=== PATIENT | male | born 1945 | race Caucasian/White ===

== ENCOUNTER 2018-11-12 07:42 | Observation (INO) | payer OTHER, MEDICARE ==
[2018-11-12] VITALS (22 sets, daily range): BP systolic 118–140; BP diastolic 48–74
[~2018-11-12] VITALS: Ht 167.6 cm; Wt 95.3 kg
[~2018-11-12 07:42] MED LIST: ASPIRIN325 PO; ASPIRIN81 M2 PO; CIPROFLOXACIN500 M1 PO; CRESTOR10 MG PO; DEXILANT60 MG PO; EFFIENT10 MG PO; FISH OIL 1,0001 EAC5 PO; FLAGYL500 MG PO; FLOMAX0.4 MG PO; HYDROCODON-ACE1 EAC7 PO; IBUPROFEN 200200 M1 PO; LASIX 20 MG TAB20 MG PO; LIVALO2 MG PO; LIVALO4 MG PO; NITROGLYCERIN0.4 MG SUBLING; NITROGLYCERIN4.1 GM; SYNTHROID50 MCG PO; TOPROL XL25 MG PO; VITAMIN D1000 UNI1 PO; ZETIA10 MG PO
[2018-11-12 08:27] LABS: HEMATOCRIT 46.3 % (42.0-52.0); MCH 30.5 pg (26.0-34.0); MCHC 34.4 g/dL (28.0-37.0); MCV 88.6 fL (80.0-100.0); MPV 8.6 fl. (7.2-11.1); RBC 5.23 mil/uL (4.50-6.00); RDW-CV 12.8 % (10.5-14.5); WBC 6.3 thou/uL (4.0-11.0)
[2018-11-12 08:32] LABS: APTT 27.4 Seconds (25.0-31.3)
[2018-11-12 08:41] LABS: ALBUMIN 3.6 g/dL (3.4-5.0); ALKALINE PHOSPHATASE 102 U/L (46-116); ANION GAP 10 mmol/L (7-16); BUN 21 mg/dL (7-18); CALCIUM 9.1 mg/dL (8.5-10.1); CHLORIDE 105 mmol/L (98-107); CHOLESTEROL 67 mg/dL (<200); CO2 26 mmol/L (21-32); CREATININE 1.1 mg/dL (0.6-1.3); GLUCOSE 111 mg/dL (70-99); HDL CHOLESTEROL 47 mg/dL (>40); LDL CHOLESTEROL -3 mg/dL (<100); SGOT 21 U/L (15-37); SGPT 33 U/L (30-65); SODIUM 141 mmol/L (136-145); TC:HDL 1.4 Ratio (Not establshd); TOTAL BILIRUBIN 0.4 mg/dL (<0.1-1.0); TOTAL PROTEIN 7.5 g/dL (6.4-8.2); TRIGLYCERIDE 119 mg/dL (<150); VLDL 24 mg/dL (<40)
[2018-11-12 08:42] LABS: SERUM ASSESSMENT Slight Lipemia
[2018-11-12] MEDS ORDERED: EFFIENT10 MG PO (08:46)
[2018-11-12] MEDS ORDERED: FLOMAX0.4 MG PO (08:47)
[2018-11-12] MEDS ORDERED: PRAULENT SUBQ (08:51)
--- NOTE | 2018-11-12 14:20 | EKG ---
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1945 Requested By: José Mota Order Number: [id number] Reading MD: José Mota Measurements Intervals [place] Rate: 56 P: 49 SD: 165 QRS: -28 QRSD: 99 T: 42 QT: 414 QTc: 400 Interpretive Statements Sinus rhythm RSR' in V1 or V2, probably normal variant Inferior infarct, old Compared to ECG 07/26/2017 03:24:15 RSR' in V1 or V2 now present Myocardial infarct finding still present Electronically Signed On 11-12-2018 14:20:13 CDT by José Mota [email or web address] <ELECTRONICALLY SIGNED> By: José Mota MD, [facility] 11/12/18 1420 José Mota MD, [facility] /EPI
--- NOTE | 2018-11-12 14:21 | EKG ---
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1945 Requested By: José Mota Order Number: [id number] [place] MD: José Mota Measurements Intervals [place] Rate: 59 P: 60 [place]: 161 QRS: -28 QRSD: 81 T: 20 QT: 433 QTc: 429 Interpretive Statements Sinus rhythm Borderline left axis deviation possible inferior scar RSR' in V1 or V2, probably normal variant Abnrm T, consider ischemia, anterolateral lds Compared to ECG 07/26/2017 03:24:15 RSR' in V1 or V2 now present Possible ischemia now present Myocardial infarct finding persists Electronically Signed On 11-12-2018 14:21:34 CDT by José Mota [email or web address] <ELECTRONICALLY SIGNED> By: José Mota MD, [facility] 11/12/18 1421 1114 1114 José Mota MD, [facility] /EPI
--- NOTE | 2018-11-12 14:33 | CARD ---
[address] [address] CARDIAC CATH REPORT Name: VALENTIN SANDERSON Room: [address] Dilma Moody#: [id number] Admission: 11/12/18 Attend Phys: José Mota MD, Discharge: Date of : 45 Report #: [id number] THIS REPORT FOR: //name// APPROVED REPORT Study performed: 11/12/2018 08:53:51 Patient Details The patient is a 73 year-old male Event Personnel José Mota Work Manager, Ladi Bravo RN Flat Breakdown Processor, Kevin Vasquez (R) Joo Almonte Brad INTERNATIONAL BANKER Monitor Procedures Performed Left Heart Cath w/or w/o Coronaries [id number] [facility] w/wo Plasty Single CIRC 475544 PTCA Single Vessel LAD [id number] PC[facility] Indication Unstable angina Risk Factors Hypercholesterolemia Previous Procedures/Diagnoses Previous PCI Admission/Lab Medications/Medications given during procedure Aspirin, Platelet Aff. Inhib., Angiomax bolus and infusion Procedure Narrative The patient was brought electively to the Cardiac Catheterization Laboratory and was prepped and draped in a sterile manner. The right femoral was infiltrated with 2% Lidocaine subcutaneous anesthesia. A Princeton 6 FR sheath was inserted into the RFA. Coronary angiography was performed using coronary diagnostic catheters. The right coronary system was accessed and visualized with a JL4 catheter. The left coronary system was accessed and visualized with a JR4 catheter. The left ventricle was accessed and visualized with a Angled PIG catheter. Left ventricular/Aortic Valve gradient assessed via catheter pullback. Left ventriculogram was performed in DUPONT projection. Pre-demployment femoral angiogram was performed . Closure device was deployed with a Fr Angioseal STS 6Fr[place] [address] CARDIAC CATH REPORT Name: VALENTIN SANDERSON Room: [address] M.R.#: [id number] Admission: 11/12/18 Attend Phys: José Mota MD, Discharge: Date of : 45 Report #: [id number]. Intraoperative Conscious Sedation Fentanyl 75.0 mcg Dose: 154 mGy Contrast Type and Amount: Visipaque 300 ml Coronary Angiography The patient's coronary anatomy is right dominant. Diagnostic Cath Left Main 0% narrowing LAD Widely patent proximal LAD stent with 30% mid vessel narrowing Circumflex 90% ostial proximal circumflex narrowing with 40% mid vessel narrowing Right Coronary Dominant vessel with widely patent proximal and mid vessel stents with 0% narrowing Left Ventriculography The left ventricle is normal in size with normal contractility. The left ventricular ejection fraction is estimated to be 60%. Left ventricular wall motion abnormalities are not present. There is no mitral insufficiency. Hemodynamics The aortic pressure is 102/55 mmHg with a mean of 72 mmHg. The left ventricular pressure is 107/7 mmHg with a mean of mmHg. The left ventricular end diastolic pressure is 21 mmHg. There was no gradient across the aortic valve upon pullback. PCI Technique Lesion Anticoagulation was achieved with Angiomax. Patient was preloaded with Angiomax IV 14 mg per kg. Percutaneous coronary intervention was performed on the proximal circumflex artery segment. The lesion stenosis prior to intervention was 90% with LACEY 3 flow. A 6F XB LAD 3.5 Guide Catheter was used to engage the ostium. A IG: BMW 190cm Interventional Guidewire was used to cross the lesion. BALLOON DILATION A Balloon catheter Trek RX 2.5 X 12 was inserted and inflated up to 16.00atm for 18seconds. STENT DEPLOYMENT A stent Xience Sharron [id number] was inserted [place] [address] CARDIAC CATH REPORT Name: VALENTIN SANDERSON JAY JAY Room: [address]#: [id number] Admission: 11/12/18 Attend Phys: José Mota MD, Discharge: Date of : 45 Report #: [id number] 18.00atm for 10seconds. POST STENT DEPLOYMENT BALLOON DILATION A Balloon catheter NC Trek RX 2.75 X 12 was inserted and inflated up to 18.00atm for 10seconds. Final angiography reveals 10 % stenosis with LACEY 3 flow. PCI Technique Lesion 2 Percutaneous Coronary Intervention was performed on the proximal left anterior descending artery segment. The lesion stenosis prior to intervention was 60% with LACEY 3 flow. A 6F XB LAD 3.5 Guide Catheter was used to engage the ostium. A IG: ProwaterFlex 180CM Interventional Guidewire was used to cross the lesion. Balloon Dilation A Balloon catheter NC Trek RX 3.25X8 was inserted and inflated up to 18.00atm for 10seconds. Final angiography reveals 0 % stenosis with LACEY flow. Conclusion #1 significant coronary artery disease characterized by the following: A 90% ostial proximal circumflex narrowing B widely patent proximal LAD stent with 30% mid vessel narrowing C dominant right coronary artery with widely patent proximal and mid vessel stents #2 normal left ventricular systolic function, estimate ejection fraction being 60% #3 moderate elevation of left ventricular end-diastolic pressure at rest #4 successful percutaneous coronary intervention with deployment of drug-eluting stent at site of 90% ostial proximal circumflex narrowing with 10% residual narrowing and LACEY-3 flow the distal vessel #5 successful percutaneous transient coronary angioplasty of the proximal LAD after plaque shift associated with circumflex stent deployment with 0% residual narrowing following [place] [address] CARDIAC CATH REPORT Name: VALENTIN SANDERSON Room: [address] Dilma M.R.#: [id number] Admission: 11/12/18 Attend Phys: José Mota MD, Discharge: Date of : 45 Report #: [id number] LACEY-3 flow the distal vessel Recommendations Cardiac Risk Reduction Program Aggressive Medical Therapy Medications Administered Prasugrel Diagnostic Cath Approved by: José Mota MD Date/Time: 11/12/2018 14:31:01 <ELECTRONICALLY SIGNED> By: José Mota MD, [facility] 11/12/18 1432 143 143[facility] M[facility] MD, [facility] /INF
[2018-11-13] VITALS: BP 115/56
[2018-11-13 04:00] VITALS: BP 119/70
[2018-11-13 05:11] LABS: HEMATOCRIT 43.9 % (42.0-52.0); HEMOGLOBIN 15.1 gm/dL (14.0-18.0); MCH 30.4 pg (26.0-34.0); MCHC 34.5 g/dL (28.0-37.0); MCV 88.1 fL (80.0-100.0); MPV 8.7 fl. (7.2-11.1); RBC 4.99 mil/uL (4.50-6.00); WBC 7.2 thou/uL (4.0-11.0)
[2018-11-13 05:22] LABS: ALBUMIN 3.4 g/dL (3.4-5.0); CALCIUM 8.6 mg/dL (8.5-10.1); CREATININE 1.1 mg/dL (0.6-1.3); POTASSIUM 3.7 mmol/L (3.5-5.1); TOTAL BILIRUBIN 0.7 mg/dL (<0.1-1.0); TOTAL PROTEIN 6.9 g/dL (6.4-8.2); TROPONIN-I LEVEL 0.12 ng/mL (<0.06)
[2018-11-13 08:00] VITALS: BP 135/78
[2018-11-13 09:17] VITALS: BP 120/62
[2018-11-13 10:44] VITALS: BP 120/62
--- NOTE | 2018-11-13 18:23 | EKG ---
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[facility] : 1945 Requested By: José Mota Order Number: [id number] Reading MD: Grant Pool Measurements Intervals [place] Rate: 61 P: 53 [place]: 167 QRS: -22 QRSD: 75 T: 50 QT: 422 QTc: 425 Interpretive Statements Sinus rhythm Probable left atrial enlargement Borderline left axis deviation Nonspecific T abnrm, anterolateral leads Compared to ECG 11/12/2018 11:14:53 Possible ischemia no longer present Electronically Signed On 11-13-2018 18:23:28 CDT by Grant Pool [email or web address] <ELECTRONICALLY SIGNED> By: Grant Pool MD, FACC 11/13/18 1823 0409 [id number] Grant Pool MD, [facility] /EPI
--- NOTE | 2018-11-14 11:20 | H ---
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 When last seen in the office in July, he noted brief episodes of chest discomfort. Since then, there has been an increase in frequency and severity of central chest pain, typical of his prior angina brought on by modest exertion. The episodes have become more frequent and more severe. He has underlying hyperlipidemia. He is compliant with cardiac regimen including Effient 10 mg daily, rosuvastatin 20 mg daily, L-thyroxine 50 mcg daily, furosemide 40 mg daily, Repatha injections every 2 weeks, aspirin 325 mg daily. Additional medicines include Uroxatral and Dexilant. PAST MEDICAL HISTORY: Remarkable for hyperlipidemia, hypothyroidism. FAMILY HISTORY: Remarkable for premature cardiac disease. SOCIAL HISTORY: He is a prior smoker. He is . REVIEW OF SYSTEMS: Generally notes mild arthritic complaints and there is mild weight excess. Remainder is unremarkable. PHYSICAL EXAMINATION: GENERAL: Demonstrates a modestly overweight elderly male in no acute distress. VITAL SIGNS: Blood pressure 130/70, pulse rate 74, respirations 18 per minute. NECK: Jugular venous pressure is normal with carotids being 1-2+. CHEST: Clear. CARDIOVASCULAR: Reveals normal first and second heart sounds without rubs or murmurs. There is a question of an S4 gallop. ABDOMEN: Mildly obese. EXTREMITIES: Without edema with intact femoral, pedal and radial pulses. IMPRESSION: 1. Unstable angina. 2. Coronary artery disease, status post prior percutaneous intervention to the LAD, right coronary artery [place] [address] HISTORY AND PHYSICAL Name: VALENTIN SANDERSON JAY JAY Room: [address] Roel.#: [id number] Admission: 11/12/18 Attend Phys: José Mota MD, Discharge: 11/13/18 Date of : 45 Report #: [id number] 3. Hypercholesterolemia. 4. Modest weight excess. RECOMMENDATIONS: Given the aforementioned clinical scenario with increasing angina and known coronary artery disease with the risk factor profile as outlined above, I would recommend proceeding with cardiac catheterization to define current coronary anatomy prospects for subsequent therapeutic modification. This has been discussed with the patient and family. <ELECTRONICALLY SIGNED> By: José Mota MD, [facility] 11/14/18 1120 1050 1203Joyuli Mota MD, FACC /nt
--- NOTE | 2018-11-14 11:21 | D ---
[address] [address] DISCHARGE SUMMARY Name: VALENTIN SANDERSON Room: [address] Dilma MBest#: [id number] Admission: 11/12/18 Attend Phys: José Mota MD, Discharge: 11/13/18 Date of : 45 Report #: [id number] THIS REPORT FOR: //name// CC: Dr. Modesto Mota [facility] DATE OF SERVICE: 11/13/2018 FINAL DISCHARGE DIAGNOSES: 1. Unstable angina. 2. Coronary artery disease. 3. Status post multiple percutaneous coronary interventions, most recently to the proximal circumflex on 11/12/2018. 4. Hyperlipidemia. PROCEDURES: On 11/12/2018 -- left heart catheterization, left ventriculography, selective coronary arteriography, and percutaneous coronary intervention with stenting of the proximal circumflex and angioplasty of the proximal LAD. 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 He has underlying hyperlipidemia and weight excess. Recently, he has noted recrudescence of exertional chest discomfort typical of his angina following an unstable pattern. In this context, I recommended proceeding with cardiac catheterization, which was undertaken on 11/12/2018. That study revealed 90% ostial proximal circumflex stenosis with mild mid LAD narrowing and widely patent proximal and mid right coronary stents. Given this data, I performed percutaneous coronary intervention of the circumflex, deploying one 2.75 x 12 mm Xience Sharron drug-eluting stent in the proximal circumflex with 10% residual narrowing. With stent deployment in the proximal circumflex there was mild obstruction of the subtle narrowing of the proximal LAD and I dilated that with a 3.25 x 8 NC Trek inflated to 16-18 atmospheres with 10% residual circumflex with 0% residual LAD narrowing. The patient did well post-procedurally and ambulated in the hallways without difficulty with good hemostasis at the right femoral site of catheterization. Laboratory on 11/13/2018 revealed sodium 140, potassium 3.7, BUN 15, creatinine 1.1. Hemoglobin 15.1, white blood cell count 7200 with 179,000 platelets. Troponin susie inconsequentially to 0.12. Cholesterol 107, triglycerides 119, HDL 47, calculated LDL -3. Thus, the patient was discharged to home on 11/13/2018 on the following medications: Aspirin 325 mg daily, Dexilant 60 mg daily, L-thyroxine 50 [place] [address] DISCHARGE SUMMARY Name: VALENTIN SANDERSON Room: [address]#: [id number] Admission: 11/12/18 Attend Phys: José Mota MD, Discharge: 11/13/18 Date of : 45 Report #: [id number] daily, prasugrel or Effient 10 mg daily with 30 mg nick-procedural dose, rosuvastatin 20 mg at bedtime, tamsulosin 0.4 mg daily, Praluent 150 mg subcutaneously every weeks. I will plan to see him in approximately 2 months in the office with an echocardiogram at that time; that visit having been scheduled. Thus, the patient is discharged to home in stable condition on the above described medications with followup as iterated above. <ELECTRONICALLY SIGNED> By: José Mota MD, [facility] 11/14/18 1121 0910 [id number] Mota MD, FAC /nt
== END 2018-11-13 11:00 | disposition home or self-care (01) ==
LOC: M.CL 07:42 → M.2W 10:41 → M.TBA-CV 10:41 → M.CL 13:00 → M.2W 15:47
PROVIDERS: ADMIT Internal Medicine
DX: I25.110 Atherosclerotic heart disease of native coronary artery with unstable angina pectoris (principal); E78.00 Pure hypercholesterolemia, unspecified; R63.5 Abnormal weight gain; E78.5 Hyperlipidemia, unspecified; E03.9 Hypothyroidism, unspecified; Z98.61 Coronary angioplasty status; Z79.82 Long term (current) use of aspirin; Z87.891 Personal history of nicotine dependence

== ENCOUNTER → 2019-05-27 | Outpatient (CLI) | payer OTHER, MEDICARE ==
[~2019-05-27] MED LIST changes: +PRAULENT SUBQ
[2019-05-27 14:40] LABS: ABSOLUTE BASOPHILS 0.1 thou/uL (0.0-0.2); ABSOLUTE EOSINOPHILS 0.2 thou/uL (0.0-0.7); ABSOLUTE LYMPHOCYTES 1.3 thou/uL (0.8-5.3); ABSOLUTE MONOCYTES 0.5 thou/uL (0.0-1.2); ABSOLUTE NEUTROPHILS 4.8 thou/uL (1.6-8.1); EOSINOPHILS 2.6 %; HEMATOCRIT 46.4 % (42.0-52.0); HEMOGLOBIN 16.2 gm/dL (14.0-18.0); LYMPHOCYTES 18.6 %; MCH 31.8 pg (26.0-34.0); MCV 90.7 fL (80.0-100.0); MONOCYTES 7.8 %; MPV 8.6 fl. (7.2-11.1); NUCLEATED RBCS 0 /100WBC; PLATELET COUNT* 214 thou/uL (150-400); RBC 5.11 mil/uL (4.50-6.00); RDW-CV 12.6 % (10.5-14.5); WBC 6.8 thou/uL (4.0-11.0)
[2019-05-27 14:44] LABS: URINE BILIRUBIN NEGATIVE (Negative); URINE BLOOD NEGATIVE (Negative); URINE CLARITY CLEAR; URINE COLOR YELLOW; URINE GLUCOSE-RANDOM NEGATIVE (Negative); URINE KETONES NEGATIVE (Negative); URINE LEUKOCYTES NEGATIVE (Negative); URINE NITRITE NEGATIVE (Negative); URINE PROTEIN NEGATIVE (Negative); URINE UROBILINOGEN 0.2 E.U./dl (0.2-1.0)
[2019-05-27 14:54] LABS: ALKALINE PHOSPHATASE 80 U/L (46-116); ANION GAP 11 mmol/L (7-16); BUN 22 mg/dL (7-18); CALCIUM 8.8 mg/dL (8.5-10.1); CHLORIDE 106 mmol/L (98-107); CHOLESTEROL 123 mg/dL (<200); CO2 23 mmol/L (21-32); CREATININE 1.2 mg/dL (0.6-1.3); GLUCOSE 85 mg/dL (70-99); HDL CHOLESTEROL 51 mg/dL (>40); LDL CHOLESTEROL 59 mg/dL (<100); SERUM ASSESSMENT Clear; SGOT 22 U/L (15-37); SGPT 35 U/L (30-65); SODIUM 140 mmol/L (136-145); TC:HDL 2.4 Ratio (Not establshd); TOTAL BILIRUBIN 0.5 mg/dL (<0.1-1.0); TOTAL PROTEIN 7.8 g/dL (6.4-8.2); TRIGLYCERIDE 66 mg/dL (<150); VLDL 13 mg/dL (<40)
== END ==
LOC: M.LAB 14:19
PROVIDERS: Urology
DX: N40.1 Benign prostatic hyperplasia with lower urinary tract symptoms (principal); E03.9 Hypothyroidism, unspecified; E78.5 Hyperlipidemia, unspecified; I25.10 Atherosclerotic heart disease of native coronary artery without angina pectoris; I65.29 Occlusion and stenosis of unspecified carotid artery; R39.12 Poor urinary stream

== ENCOUNTER → 2019-11-12 | Outpatient (CLI) | payer OTHER, MEDICARE ==
[2019-11-12 09:54] LABS: URINE BILIRUBIN NEGATIVE (Negative); URINE BLOOD NEGATIVE (Negative); URINE CLARITY CLEAR; URINE COLOR YELLOW; URINE GLUCOSE-RANDOM NEGATIVE (Negative); URINE KETONES NEGATIVE (Negative); URINE LEUKOCYTES NEGATIVE (Negative); URINE NITRITE NEGATIVE (Negative); URINE PROTEIN NEGATIVE (Negative); URINE SPECIFIC GRAVITY 1.015 (1.005-1.030); URINE UROBILINOGEN 0.2 E.U./dl (0.2-1.0)
[2019-11-12 09:56] LABS: ABSOLUTE BASOPHILS 0.1 thou/uL (0.0-0.2); ABSOLUTE EOSINOPHILS 0.2 thou/uL (0.0-0.7); ABSOLUTE LYMPHOCYTES 1.5 thou/uL (0.8-5.3); ABSOLUTE MONOCYTES 0.8 thou/uL (0.0-1.2); ABSOLUTE NEUTROPHILS 4.6 thou/uL (1.6-8.1); BASOPHILS 0.7 %; EOSINOPHILS 3.4 %; HEMATOCRIT 45.5 % (42.0-52.0); HEMOGLOBIN 15.6 gm/dL (14.0-18.0); LYMPHOCYTES 20.8 %; MCH 30.8 pg (26.0-34.0); MCHC 34.3 g/dL (28.0-37.0); MONOCYTES 10.7 %; MPV 8.4 fl. (7.2-11.1); NUCLEATED RBCS 0 /100WBC; PLATELET COUNT* 187 thou/uL (150-400); POLYS 64.4 %; RBC 5.05 mil/uL (4.50-6.00); WBC 7.2 thou/uL (4.0-11.0)
[2019-11-12 10:05] LABS: ALBUMIN 3.7 g/dL (3.4-5.0); ALKALINE PHOSPHATASE 76 U/L (46-116); ANION GAP 8 mmol/L (7-16); BUN 31 mg/dL (7-18); CALCIUM 8.5 mg/dL (8.5-10.1); CHLORIDE 105 mmol/L (98-107); CO2 26 mmol/L (21-32); GLUCOSE 99 mg/dL (70-99); POTASSIUM 4.4 mmol/L (3.5-5.1); SGOT 25 U/L (15-37); SGPT 29 U/L (30-65); SODIUM 139 mmol/L (136-145); TOTAL BILIRUBIN 0.5 mg/dL (<0.1-1.0); TOTAL PROTEIN 7.4 g/dL (6.4-8.2)
[2019-11-12 10:20] LABS: CHOLESTEROL 95 mg/dL (<200); HDL CHOLESTEROL 47 mg/dL (>40); LDL CHOLESTEROL 29 mg/dL (<100); TRIGLYCERIDE 96 mg/dL (<150); VLDL 19 mg/dL (<40)
[2019-11-12 10:22] LABS: SERUM ASSESSMENT Slight Lipemia
== END ==
LOC: M.LAB 09:02
PROVIDERS: Family Medicine
DX: E03.9 Hypothyroidism, unspecified (principal); E78.5 Hyperlipidemia, unspecified; I25.10 Atherosclerotic heart disease of native coronary artery without angina pectoris; I65.29 Occlusion and stenosis of unspecified carotid artery; N40.1 Benign prostatic hyperplasia with lower urinary tract symptoms; R39.12 Poor urinary stream

== ENCOUNTER → 2019-11-13 | Outpatient (CLI) | payer OTHER, MEDICARE ==
[~2019-11-13] MED LIST changes: +NITROSTAT0.4 M1 SUBLING; +PRALUENT P150 MG/1 M SUBQ; +PROSCAR 5MG TABL5 M1 PO; +PROTONIX40 M2 PO
--- NOTE | 2019-11-13 17:12 | CARDNUC ---
[place] [address] CARDIAC NUCLEAR IMAGING REPORT Name: VALENTIN SANDERSON Room: [facility]#: [id number] Admission: 11/13/19 Attend Phys: Maritza Milan Discharge: Date of : 45 Date of Service: 11/13/19 1711 Report #: [id number] THIS REPORT FOR: cc: Nicki García Maggie M. DO Liston, Michael J. MD [facility] ~ APPROVED REPORT Imaging Protocol: Stress Tc-99m/Rest Tc-99m 2 days Study performed: 11/13/2019 07:30:00 Indication: CAD s/p PCI Patient Location: Out-Patient Stress Tech: Ami Hussein Stress Nurse: Erin White RN Ht: 5 ft 6 in Wt: 205 lbs BSA: 2.02 m2 BMI: 33.08 Medical History Medical History: CAD s/p stent, Hyperlipidemia, Former Smoker Medications: praluent, asa-325, effient, rosuvastatin Allergies: statins Cardiac Risk Factors: Age, Hyperlipidemia, FHX of CAD, Past Smoker Previous Cardiac Procedures: PCI Exercise History: Physically active Resting Data Rest SPECT myocardial perfusion imaging was performed in supine position 30 minutes following the intravenous injection of 10.0 mCi of Tc-99m Sestamibi. Time of rest injection: 08:10 The images were gated to evaluate regional wall motion and calculate left ventricular ejection fraction. Administration Route: IV Administration Site: Right AC Exercise Stress At peak stress, the patient was injected intravenously with 30.3mCi of Tc-99m Sestamibi. Time of stress injection: 09:45 Administration Route: [place] [address] CARDIAC NUCLEAR IMAGING REPORT Name: VALENTIN SANDERSON Room: [facility]#: [id number] Admission: 11/13/19 Attend Phys: Maritza Milan Discharge: Date of : 45 Date of Service: 11/13/19 1711 Report #: [id number] Administration Site: Right AC Heart Rate at time of stress injection: 145 bpm. Patient continued to exercise for 1 minute(s). Gated Stress SPECT was performed 45 minutes after stress injection. The images were gated to evaluate regional wall motion and calculate left ventricular ejection fraction. Prone imaging was performed. Stress Test Details Stress Test: Exercise stress testing was performed using a Armando protocol. HR Max Heart Rate (APMHR): 146 bpm Resting HR: 63 bpm Target HR (85% APMHR): 124 bpm Max HR Achieved: 150 bpm % of APMHR: 102 Recovery HR: 85 bpm BP Resting BP: 128/71 mmHg Max BP: 202/64 mmHg Recovery BP: 159/77 mmHg ECG Resting ECG: Sinus Rhythm Stress ECG: Sinus Tachycardia ST Change: Horizontal ST depression Maximum ST Deviation: 1 mm Arrhythmia: None Recovery ECG: Sinus Rhythm Recovery ST Change: Horizontal ST depression Recovery ST Deviation: 1 mm Recovery Arrhythmia: APC's Clinical Reason for Termination: Maximal effort, Dyspnea, Fatigue Exercise duration: 5 min 30 sec Exercise capacity: 7.05 METs Functional Aerobic Impairment 100% The patient exhibited dyspnea and fatigue with mild to moderate exertional dyspnea Armando protocol. Stress ECG Conclusion The baseline 12-lead EKG shows sinus rhythm without significant ST segment or T wave abnormality. EKGs obtained during and post exercise showed [address] segment depression that persists 6 [place] [address] CARDIAC NUCLEAR IMAGING REPORT Name: VALENTIN SANDERSON Room: [facility]#: [id number] Admission: 11/13/19 Attend Phys: Maritza Milan Discharge: Date of : 45 Date of Service: 11/13/19 1711 Report #: [id number] into recovery. EKG changes located in the inferolateral leads. Recovery patient exhibited PACs and short salvos of atrial couplets and triplets. Study Quality Study: Good Artifact: No artifact Study Data At rest, the left ventricular ejection fraction was 67%.. Post stress, the left ventricular ejection was 64%.. TID = 1.12. Perfusion There is a small in size moderate intensity reversible defect noted in the basal to mid anterolateral wall. No other significant fixed or reversible defects are identified. Wall Motion Global LV systolic function was preserved. There was perhaps some mild hypokinesis of the inferoseptal wall. Nuclear Conclusion ECG Findings: positive for ischemia Clinical Findings: suggestive of ischemia Nuclear Findings: positive for ischemia Exercise Capacity: abnormal Left Ventricular Function: preserved Risk Study: moderate Perfusion images suggest a small region of ischemia basal to mid anterolateral wall. Global LV systolic function is preserved. This is a moderate risk study. <Conclusion> The baseline 12-lead EKG shows sinus rhythm without significant ST segment or T wave abnormality. EKGs obtained during and post exercise showed [address] segment depression that persists 6 minutes into recovery. EKG changes located in the inferolateral leads. Recovery patient exhibited PACs and short salvos of atrial couplets and triplets. <ELECTRONICALLY SIGNED> By: Grant Pool MD, FACC 11/13/191710 10 10 Grant Pool MD, FACC /INF
== END ==
LOC: M.NUC 06-04 15:43
PROVIDERS: ATTEND Internal Medicine
DX: I25.10 Atherosclerotic heart disease of native coronary artery without angina pectoris (principal); Z95.5 Presence of coronary angioplasty implant and graft

== ENCOUNTER → 2019-11-24 | Outpatient (CLI) | payer OTHER, MEDICARE | LOC: M.LAB 13:15 | DX: Z11.59 Encounter for screening for other viral diseases (principal); I25.10 Atherosclerotic heart disease of native coronary artery without angina pectoris ==

== ENCOUNTER 2019-12-02 07:25 | Observation (INO) | payer OTHER, MEDICARE ==
[2019-12-02] VITALS (14 sets, daily range): BP systolic 113–149; BP diastolic 69–769
[~2019-12-02] VITALS: Ht 167.6 cm; Wt 89.2 kg
[~2019-12-02 07:25] MED LIST changes: -NITROSTAT0.4 M1 SUBLING; -PRALUENT P150 MG/1 M SUBQ; -PROSCAR 5MG TABL5 M1 PO; -PROTONIX40 M2 PO
[2019-12-02] MEDS ORDERED: PRALUENT P150 MG/1 M SUBQ (07:52)
[2019-12-02] MEDS ORDERED: PROTONIX40 M2 PO (07:54)
[2019-12-02] MEDS ORDERED: PROSCAR 5MG TABL5 M1 PO (07:55)
[2019-12-02 08:43] LABS: HEMATOCRIT 45.2 % (42.0-52.0); HEMOGLOBIN 15.7 gm/dL (14.0-18.0); MCH 31.3 pg (26.0-34.0); MCHC 34.8 g/dL (28.0-37.0); MCV 90.2 fL (80.0-100.0); MPV 8.1 fl. (7.2-11.1); RBC 5.01 mil/uL (4.50-6.00); WBC 7.5 thou/uL (4.0-11.0)
[2019-12-02 08:49] LABS: APTT 20.8 Seconds (25.0-31.3); PROTIME 10.6 Seconds (9.20-11.50)
[2019-12-02 08:52] LABS: ALBUMIN 3.5 g/dL (3.4-5.0); ALKALINE PHOSPHATASE 69 U/L (46-116); ANION GAP 7 mmol/L (7-16); CALCIUM 8.3 mg/dL (8.5-10.1); CHLORIDE 106 mmol/L (98-107); CHOLESTEROL 121 mg/dL (<200); CO2 27 mmol/L (21-32); GLUCOSE 105 mg/dL (70-99); HDL CHOLESTEROL 55 mg/dL (>40); LDL CHOLESTEROL 56 mg/dL (<100); SGOT 25 U/L (15-37); SGPT 35 U/L (30-65); SODIUM 140 mmol/L (136-145); TC:HDL 2.2 Ratio (Not establshd); TOTAL BILIRUBIN 0.4 mg/dL (<0.1-1.0); TRIGLYCERIDE 54 mg/dL (<150); VLDL 11 mg/dL (<40)
[2019-12-02 08:53] LABS: SERUM ASSESSMENT Clear
[2019-12-02 09:17] LABS: BUN 14 mg/dL (7-18)
--- NOTE | 2019-12-02 16:11 | NUR ---
PT VSS, SB ON TELE, A&OX4, ROOM AIR, POST CATH- RIGHT GROIN SITE, DRESSING- CLEAN DRY AND INTACT, ADMISSION COMPLETED, IMMOBILE UNTIL 1900, HOURLY ROUNDING PERFORMED, POSSESSIONS AND CALL LIGHT WITHIN REACH.
--- NOTE | 2019-12-02 17:31 | EKG ---
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 : 1945 Requested By: José Mota Order Number: [id number] Reading MD: Grant Pool Measurements Intervals [place] Rate: 50 P: 54 [place]: 161 QRS: -28 QRSD: 94 T: -18 QT: 452 QTc: 413 Interpretive Statements Sinus rhythm Probable left atrial enlargement Inferior infarct, old Abnrm T, consider ischemia, anterolateral lds Compared to ECG 11/13/2018 04:09:01 Myocardial infarct finding now present Possible ischemia now present Electronically Signed On 12-02-2019 17:29:38 CDT by Grant Pool [email or web address] <ELECTRONICALLY SIGNED> By: Grant Pool MD, FACC 12/02/19 1729 0736 Grant Pool MD, FACC /EPI
--- NOTE | 2019-12-02 17:32 | EKG ---
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 : 1945 Requested By: José Mota Order Number: [id number] Reading MD: Grant Polo Measurements Intervals [place] Rate: 53 P: 55 [place]: 174 QRS: -29 QRSD: 91 T: -40 QT: 465 QTc: 437 Interpretive Statements Sinus rhythm Inferior infarct, old Abnrm T, consider ischemia, anterolateral lds Compared to ECG 11/13/2018 04:09:01 Myocardial infarct finding now present Possible ischemia now present Electronically Signed On 12-02-2019 17:30:37 CDT by Grant Pool [email or web address] <ELECTRONICALLY SIGNED> By: Grant Pool MD, FACC 12/02/19 1730 1130 1130 Grant Pool MD, FACC /EPI
[2019-12-03] VITALS: BP 116/65
[2019-12-03 04:00] VITALS: BP 125/70
--- NOTE | 2019-12-03 04:56 | NUR ---
PT SLEPT MOST OF SHIFT. ASSESSMENT DOCUMENTED. MEDS GIVEN PER E-MAR. IV PATENT. NO REPORTS OF PAIN OR NAUSA. CATH SITE REMAINED CDI. TELE MONITOR READING SR-SB. HOME C-PAP WORN WHILE SLEEPING. WILL CONTINUE WITH PLAN OF CARE.
[2019-12-03 05:12] LABS: HEMATOCRIT 45.6 % (42.0-52.0); HEMOGLOBIN 15.8 gm/dL (14.0-18.0); MCH 31.3 pg (26.0-34.0); MCHC 34.6 g/dL (28.0-37.0); MCV 90.5 fL (80.0-100.0); MPV 8.3 fl. (7.2-11.1); RBC 5.04 mil/uL (4.50-6.00); WBC 8.9 thou/uL (4.0-11.0)
[2019-12-03 05:34] LABS: ALBUMIN 3.4 g/dL (3.4-5.0); CALCIUM 8.6 mg/dL (8.5-10.1); CREATININE 0.9 mg/dL (0.6-1.3); TOTAL BILIRUBIN 0.8 mg/dL (<0.1-1.0); TOTAL PROTEIN 6.9 g/dL (6.4-8.2); TROPONIN-I LEVEL 0.44 ng/mL (<0.06)
[2019-12-03 08:00] VITALS: BP 116/83
[2019-12-03] MEDS ORDERED: NITROSTAT0.4 M1 SUBLING (09:57)
--- NOTE | 2019-12-03 10:07 | D ---
[address] [address] DISCHARGE SUMMARY Name: VALENTIN SANDERSON Room: [address] Dilma Moody#: [id number] Admission: 12/02/19 Attend Phys: José Mota MD, Discharge: Date of : 45 Report #: [id number] THIS REPORT FOR: //name// cc: Nicki García Maggie M. DO THIS REPORT FOR: //name// CC: José García DATE OF SERVICE: 12/03/2019 FINAL DISCHARGE DIAGNOSES: 1. Abnormal nuclear stress test with inducible anterior ischemia. 2. Coronary artery disease. 3. Status post percutaneous coronary intervention, most recently to the mid and distal left anterior descending. 4. Hyperlipidemia. 5. Exogenous obesity. 6. Hypothyroidism. PROCEDURES: 12/02/2019 -- left heart catheterization, left ventriculography, selective coronary arteriography and percutaneous coronary intervention with deployment of drug-eluting stents in the mid and distal LAD. The patient is a very pleasant and active 74-year-old male with complex coronary artery disease status post multiple prior PCIs. Recently, he has noted dyspnea on exertion and nuclear stress test revealed inducible anterior ischemia. In this context, I elected to proceed with cardiac catheterization, which was undertaken on 12/02/2019. That study revealed normal left ventricular function with estimated ejection fraction of 60-65%. There were moderately severe 75% mid and 80% distal LAD stenoses noted. The previously placed left main, LAD, circumflex, and right coronary stents were widely patent. Given the recent clinical data and the abnormal stress test, I elected to proceed with percutaneous coronary intervention deploying one drug-eluting stent in the mid LAD and one in the distal LAD with 0 and 10% residual narrowings and LACEY 3 flow of the distal vessel. Troponin susie inconsequentially to 0.44. Additional labs revealed sodium 138, potassium 4.0, BUN 13, creatinine 0.9, glucose 97, hemoglobin 15.8, white blood cell count 8900 with 175,000 platelets. There was good hemostasis at the right femoral site of catheterization. He ambulated in the hallways without difficulty. The patient was discharged to home on the following medications: [facility] [place] [address] DISCHARGE SUMMARY Name: VALENTIN SANDERSON Room: [address] [place]#: [id number] Admission: 12/02/19 Attend Phys: José Mota MD, Discharge: Date of : 45 Report #: [id number] prasugrel 10 mg daily, rosuvastatin or Crestor 20 mg daily, tamsulosin 0.4 mg daily, furosemide 20 mg p.r.n., and p.r.n. sublingual nitroglycerin. I will plan to see the patient in followup on 12/29/2019 at 1000 hours at the [facility] office. Therefore, the patient is discharged to home in stable condition on the aforementioned medications with followup as iterated above. <ELECTRONICALLY SIGNED> By: José Mota MD, FACC 12/03/19 1007 0940 [id number] Mota MD, FACC /nt
--- NOTE | 2019-12-03 11:39 | CARD ---
[address] [address] CARDIAC CATH REPORT Name: VALENTIN SANDERSON Room: [address] Dil[place] Moody#: [id number] Admission: 12/02/19 Attend Phys: José Mota MD, Discharge: 12/03/19 Date of : 45 Report #: [id number] THIS REPORT FOR: //name// cc: Nicki García Maggie M. DO ~ APPROVED REPORT Study performed: 12/02/2019 08:38:30 Patient Details Patient Status: Out-Patient Room #: The patient is a 74 year-old male Event Personnel José Mota Configuration Consultant, Edwin Cope RN Senior Designer/Art Director, Kathi Martinez RN Senior Designer/Art Director, Milana Urena RTR Monitor, Kadeem PrasadIS Scrub Procedures Performed Art Access - R femoral artery, Left Heart Cath w/or w/o Coronaries , , [facility] D[facility]CE Place w/wo Plasty Single LAD , Hemostasis w/ Angioseal Indication Positive stress test Risk Factors Obesity, Hypercholesterolemia Previous Procedures/Diagnoses Previous PCI Admission/Lab Medications/Medications given during procedure Oxygen Nasal cannula 2 l per min, Lidocaine Subcut 18 ml, Angiomax IV bolus 13.5 ml, Angiomax Drip IV 32.44 ml per hr, Angiomax IV bolus 4 ml, Effient PO 30 mg, Aspirin PO 162 mg Procedure Narrative The patient was brought electively to the Cardiac Catheterization Laboratory and was prepped and draped in a sterile manner. The right femoral was infiltrated with 2% Lidocaine subcutaneous anesthesia. A 6F Leisenring sheath was inserted into the right femoral artery. Coronary angiography was performed using coronary diagnostic catheters. The right coronary system was accessed and visualized with a 6F JR4 catheter. The left coronary [place] [address] CARDIAC CATH REPORT Name: KINVALENTIN Toan Room: [address] Dilma MBeau.#: [id number] Admission: 12/02/19 Attend Phys: José Mota MD, Discharge: 12/03/19 Date of : 45 Report #: [id number] visualized with a 6F JL4 catheter. The left ventricle was accessed and visualized with a 6F Pigtail catheter. Left ventricular/Aortic Valve gradient assessed via catheter pullback. Left ventriculogram was performed in DUPONT projection. Pre-demployment femoral angiogram was performed . Closure device was deployed with a 6 Fr Angioseal STS. The patient tolerated the procedure well and there were no complications associated with the procedure. There was no hematoma. Intraoperative Conscious Sedation Sedation start time: 09:46 Case end Time: 10:44 Fentanyl 50 mcg Versed 2 mg Fluoro Time: 12.3 minutes Dose: DAP [id number] cGycm2 2732 mGy Contrast Type and Amount: Visipaque 340 ml Coronary Angiography The patient's coronary anatomy is right dominant. Diagnostic Cath Left Main 0 percent narrowing LAD Widely patent proximal LAD stent with a focal 75% mid LAD stenosis and 80% apical LAD stenosis Circumflex 40% narrowing of the midportion of the nondominant circumflex Right Coronary Widely patent mid and distal right coronary stents with 0% narrowing Left Ventriculography The left ventricle is normal in size with normal contractility. The left ventricular ejection fraction is estimated to be 65%. Left ventricular wall motion abnormalities are not present. There is no mitral insufficiency. Hemodynamics The aortic pressure is 102/47 mmHg with a mean of 72 mmHg. The left ventricular pressure is 104/4 mmHg with a mean of mmHg. The left ventricular end diastolic pressure is 17 mmHg. PCI Technique Lesion Anticoagulation was achieved with Angiomax. Patient was preloaded with Angiomax IV 13.5 ml. Percutaneous coronary intervention was performed on the mid left anterior descending artery segment. The lesion stenosis prior to intervention was 75% with LACEY 3 flow. [place] 6[place] [address] CARDIAC CATH REPORT Name: VALENTIN SANDERSON Room: [address] Dilma MBest#: [id number] Admission: 12/02/19 Attend Phys: José Mota MD, Discharge: 12/03/19 Date of : 45 Report #: [id number] XB LAD 3.5 Guide Catheter was used to engage the left ostium. A BMW 190cm Interventional Guidewire was used to cross the lesion. STENT DEPLOYMENT A drug-eluting stent Greenup RX Stent 2.25X8mm was inserted and inflated up to 12.00atm for 18seconds. Additional Inflation: 14.00atm for 3seconds. Additional Inflation: 14.00atm for 7seconds. Final angiography reveals 0 % stenosis with LACEY 3 flow. PCI Technique Lesion 2 Percutaneous Coronary Intervention was performed on the distal left anterior descending artery segment. Patient was preloaded with Angiomax IV 13.5 ml. The lesion stenosis prior to intervention was 80% with LACEY 3 flow. A 6F XB LAD 3.5 Guide Catheter was used to engage the left ostium. A BMW 190cm Interventional Guidewire was used to cross the lesion. Stent Deployment A drug-eluting stent Isaac RX Stent 2.0X12mm was inserted and inflated up to 10.00atm for 7seconds. Additional Inflation: 14.00atm for 5seconds. Additional Inflation: 16.00atm for 8seconds. Post Stent Deployment Balloon Dilation A Balloon catheter NC Trek RX 2.0 X 8 was inserted and inflated up to 18.00atm for 8seconds. Additional Inflation: 22.00atm for 9seconds. A balloon catheter NC Trek RX 2.25 x 8 was inserted and inflated up to 14 [place] for 17 seconds. Additional Inflations: 14 h[place] for 5 seconds and 12 houston for 11 seconds. Final angiography reveals 10 % stenosis with LACEY 3 flow. Conclusion #1 significant coronary artery disease characterized by the following: A widely patent proximal LAD stents with focal 75% mid LAD stenosis and 80% apical LAD stenosis B 40% narrowing of the midportion of the nondominant circumflex C widely patent right coronary stents with 0% narrowing #2 normal left ventricular systolic function, estimate ejection fraction 65% [address] [address] CARDIAC CATH REPORT Name: VALENTIN SANDERSON Room: [address] Dilma SalasKleverDignaKlever#: [id number] Admission: 12/02/19 Attend Phys: José Mota MD, Discharge: 12/03/19 Date of : 45 Report #: [id number] #3 mild elevation of left ventricular end-diastolic pressure at rest #4 successful PCI with deployment of sequential drug-eluting stents at the sites of 75% mid and 80% apical LAD stenosis with 0 and 10% residual narrowings and LACEY-3 flow to the distal vessel Recommendations Cardiac Risk Reduction Program Aggressive Medical Therapy Medications Administered Aspirin (any) Prasugrel Diagnostic Cath Approved by: José Mota MD Date/Time: 12/03/2019 11:36:46 <ELECTRONICALLY SIGNED> By: José Mota MD, FACC 12/03/19 1138 1138 1138José Mota MD, FACC /INF
--- NOTE | 2019-12-03 13:54 | NUR ---
PT. AOX4, VSS, DENIES PAIN, PLEASANT AFFECT, CATH SITE R GROIN DRESSING CDI, NO HEMATOMA NOTED. 3+ BILAT LE PULSES NOTED, FEET WARM TO TOUCH. DISCHARGE PAPERWORK AND CARE NOTES PROVIDED. PT. ASKED TO KEEP FOLLOWUP APPOINTMENTS, ACTIVITY AND DIET RESTRICTIONS EXPLAINED. PIV ACCESS DCED WITHOUT COMPLICATIONS. PT. TRANSPORTED BY WHEELCHAIR BY NURSING STAFF WITH PERSONAL BELONGINGS AND PICKED UP BY CAR BY SPOUSE.
--- NOTE | 2019-12-03 16:29 | EKG ---
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 : 1945 Requested By: José Mota Order Number: [id number] Reading MD: Grant Pool Measurements Intervals [place] Rate: 59 P: 58 W[place]: 162 QRS: -24 QRSD: 89 T: 19 QT: 401 QTc: 398 Interpretive Statements Sinus rhythm Borderline left axis deviation Abnrm T, consider ischemia, anterolateral lds Baseline wander in lead(s) V1 Compared to ECG 12/02/2019 11:30:56 Myocardial infarct finding no longer present Possible ischemia still present Electronically Signed On 12-03-2019 16:27:41 CDT by Grant Pool [email or web address] <ELECTRONICALLY SIGNED> By: Grant Pool MD, [facility] 12/03/19 1627 0538 Grant Pool MD, [facility] /EPI
== END 2019-12-03 10:57 | disposition home or self-care (01) ==
LOC: M.CL 07:25 → M.TBA-CV 11:20 → M.2W 11:20
PROVIDERS: ADMIT Internal Medicine
DX: R94.39 Abnormal result of other cardiovascular function study (principal); I25.10 Atherosclerotic heart disease of native coronary artery without angina pectoris; E03.9 Hypothyroidism, unspecified; E78.5 Hyperlipidemia, unspecified; E66.09 Other obesity due to excess calories; E78.00 Pure hypercholesterolemia, unspecified

== ENCOUNTER → 2020-03-10 | Outpatient (CLI) | payer OTHER ==
[~2020-03-10] MED LIST changes: +NITROSTAT0.4 M1 SUBLING; +PRALUENT P150 MG/1 M SUBQ; +PROSCAR 5MG TABL5 M1 PO; +PROTONIX40 M2 PO
[2020-03-10 10:31] LABS: ABSOLUTE BASOPHILS 0.1 thou/uL (0.0-0.2); ABSOLUTE EOSINOPHILS 0.2 thou/uL (0.0-0.7); ABSOLUTE LYMPHOCYTES 1.1 thou/uL (0.8-5.3); ABSOLUTE MONOCYTES 0.6 thou/uL (0.0-1.2); ABSOLUTE NEUTROPHILS 4.2 thou/uL (1.6-8.1); BASOPHILS 0.9 %; EOSINOPHILS 2.6 %; HEMATOCRIT 49.9 % (42.0-52.0); HEMOGLOBIN 17.6 gm/dL (14.0-18.0); LYMPHOCYTES 18.6 %; MCH 32.5 pg (26.0-34.0); MCHC 35.3 g/dL (28.0-37.0); MCV 91.9 fL (80.0-100.0); MPV 8.6 fl. (7.2-11.1); NUCLEATED RBCS 0 /100WBC; PLATELET COUNT* 211 thou/uL (150-400); POLYS 67.9 %; RBC 5.43 mil/uL (4.50-6.00); WBC 6.1 thou/uL (4.0-11.0)
[2020-03-10 10:48] LABS: ALBUMIN 4.1 g/dL (3.4-5.0); ALKALINE PHOSPHATASE 81 U/L (46-116); ANION GAP 8 mmol/L (7-16); BUN 15 mg/dL (7-18); CALCIUM 9.2 mg/dL (8.5-10.1); CHLORIDE 103 mmol/L (98-107); CHOLESTEROL 120 mg/dL (<200); CO2 29 mmol/L (21-32); GLUCOSE 99 mg/dL (70-99); HDL CHOLESTEROL 64 mg/dL (>40); LDL CHOLESTEROL 41 mg/dL (<100); POTASSIUM 4.1 mmol/L (3.5-5.1); SGOT 24 U/L (15-37); SGPT 34 U/L (30-65); SODIUM 140 mmol/L (136-145); TC:HDL 1.9 Ratio (Not establshd); TOTAL BILIRUBIN 0.7 mg/dL (<0.1-1.0); TOTAL PROTEIN 8.3 g/dL (6.4-8.2); TRIGLYCERIDE 77 mg/dL (<150); VLDL 15 mg/dL (<40)
[2020-03-10 10:49] LABS: SERUM ASSESSMENT Clear
[2020-03-10 21:06] LABS: TESTOSTERONE 748 ng/dL (264-916)
== END ==
LOC: M.LAB 10:11
PROVIDERS: ATTEND Family Medicine
DX: E78.5 Hyperlipidemia, unspecified (principal); E66.09 Other obesity due to excess calories; Z68.36 Body mass index [BMI] 36.0-36.9, adult

== ENCOUNTER 2020-03-21 07:38 | Observation (INO) | payer OTHER ==
[2020-03-21] VITALS (11 sets, daily range): BP systolic 113–137; BP diastolic 67–84
[~2020-03-21] VITALS: Ht 167.6 cm; Wt 96.3 kg
--- NOTE | ~2020-03-21 | H ---
[address] [address] HISTORY AND PHYSICAL Name: VALENTIN SANDERSON Room: [address] Dilma Moody#: [id number] Admission: 03/21/20 Attend Phys: José Mota MD, Discharge: 03/22/20 Date of : 45 Report #: [id number] THIS REPORT FOR: //name// cc: Nicki García Maggie M. DO ~ Please refer to the History and Physical performed in the physician's office. By: 0642Medical Records Staff [facility] /LEO
[~2020-03-21 07:38] MED LIST changes: +LASIX 40 MG TAB40 MG PO; +LOPRESSOR50 MG PO
[2020-03-21 08:26] LABS: HEMATOCRIT 44.5 % (42.0-52.0); HEMOGLOBIN 15.7 gm/dL (14.0-18.0); MCH 31.9 pg (26.0-34.0); MCHC 35.4 g/dL (28.0-37.0); MCV 90.1 fL (80.0-100.0); MPV 8.1 fl. (7.2-11.1); RBC 4.94 mil/uL (4.50-6.00); RDW-CV 12.4 % (10.5-14.5); WBC 6.2 thou/uL (4.0-11.0)
[2020-03-21 08:35] LABS: ANION GAP 9 mmol/L (7-16); BUN 18 mg/dL (7-18); CALCIUM 8.8 mg/dL (8.5-10.1); CHLORIDE 105 mmol/L (98-107); CO2 26 mmol/L (21-32); GLUCOSE 104 mg/dL (70-99); POTASSIUM 3.8 mmol/L (3.5-5.1); SODIUM 140 mmol/L (136-145)
[2020-03-21 08:38] LABS: APTT 26.7 Seconds (25.0-31.3); PROTIME 10.2 Seconds (9.20-11.50)
[2020-03-21 08:39] LABS: ALBUMIN 3.6 g/dL (3.4-5.0); ALKALINE PHOSPHATASE 72 U/L (46-116); CHOLESTEROL 120 mg/dL (<200); HDL CHOLESTEROL 46 mg/dL (>40); LDL CHOLESTEROL 53 mg/dL (<100); SGOT 23 U/L (15-37); SGPT 31 U/L (30-65); TC:HDL 2.6 Ratio (Not establshd); TOTAL BILIRUBIN 0.5 mg/dL (<0.1-1.0); TOTAL PROTEIN 7.2 g/dL (6.4-8.2); TRIGLYCERIDE 107 mg/dL (<150); VLDL 21 mg/dL (<40)
[2020-03-21 08:43] LABS: SERUM ASSESSMENT Clear
[2020-03-22] VITALS: BP 118/73
[2020-03-22 04:00] VITALS: BP 117/68
[2020-03-22 07:26] LABS: HEMATOCRIT 48.3 % (42.0-52.0); HEMOGLOBIN 17.2 gm/dL (14.0-18.0); MCH 32.5 pg (26.0-34.0); MCHC 35.7 g/dL (28.0-37.0); MCV 91.1 fL (80.0-100.0); MPV 8.4 fl. (7.2-11.1); RBC 5.3 mil/uL (4.50-6.00); RDW-CV 12.5 % (10.5-14.5); WBC 7.9 thou/uL (4.0-11.0)
[2020-03-22 07:41] LABS: ALBUMIN 4.1 g/dL (3.4-5.0); CREATININE 1.1 mg/dL (0.6-1.3); TOTAL PROTEIN 8.2 g/dL (6.4-8.2); TROPONIN-I LEVEL 0.14 ng/mL (<0.06)
[2020-03-22 08:00] VITALS: BP 139/78
[2020-03-22 09:49] VITALS: BP 139/78
[2020-03-22 10:14] VITALS: BP 139/78
--- NOTE | 2020-03-22 11:54 | CARD ---
[address] [address] CARDIAC CATH REPORT Name: KINVALENTIN T Room: [address] Dilma Moody#: [id number] Admission: 03/21/20 Attend Phys: José Mota MD, Discharge: 03/22/20 Date of : 45 Report #: [id number] THIS REPORT FOR: //name// cc: Nicki García Maggie M. DO ~ APPROVED REPORT Study performed: 03/21/2020 08:03:28 Patient Details Patient Status: Out-Patient Room #: The patient is a 74 year-old male Event Personnel José Mota Head Mixer, Bonnie Patel Equity Research Analyst, Joni Bland RTR Scrub, Milana Urena RTR Monitor Procedures Performed Art Access - R femoral artery, Left Heart Cath w/or w/o Coronaries LHC, DULCE w/Atherectomy Single LAD DESATH , Hemostasis w/ Angioseal Indication Unstable angina Risk Factors Obesity, Family History, Hypercholesterolemia Previous Procedures/Diagnoses Previous PCI Admission/Lab Medications/Medications given during procedure Angiomax IV bolus 14 ml, Angiomax Drip IV 32.6 ml per hr, Angiomax IV bolus 1 ml, Effient PO 30 mg, Aspirin PO 162 mg Procedure Narrative The patient was brought electively to the Cardiac Catheterization Laboratory and was prepped and draped in a sterile manner. The right femoral was infiltrated with 2% Lidocaine subcutaneous anesthesia. A 6F [place] sheath was inserted into the right femoral artery. Coronary angiography was performed using coronary diagnostic catheters. The right coronary system was accessed and visualized with a 6F JR4 catheter. The left coronary system was accessed and visualized with a 6F JL4 catheter. [place] [address] CARDIAC CATH REPORT Name: VALENTIN SANDERSNO Room: [address] [place]#: [id number] Admission: 03/21/20 Attend Phys: José Mota MD, Discharge: 03/22/20 Date of : 45 Report #: [id number] and visualized with a 6F Pigtail catheter. Left ventricular/Aortic Valve gradient assessed via catheter pullback. Left ventriculogram was performed in DUPONT projection. Pre-demployment femoral angiogram was performed . Closure device was deployed with a 6 Fr Angioseal STS. The patient tolerated the procedure well and there were no complications associated with the procedure. There was no hematoma. Intraoperative Conscious Sedation Sedation start time: 09:54 Case end Time: 11:02 Fentanyl 50 mcg Versed 3 mg Fluoro Time: 14 minutes Dose: DAP 494126 cGycm2 2897 mGy Contrast Type and Amount: Visipaque 290 ml Coronary Angiography The patient's coronary anatomy is right dominant. Diagnostic Cath Left Main 0% narrowing LAD Widely patent proximal LAD stent with tandem 80 and 75% mid LAD stenosis the first being an in-stent restenosis Circumflex Nondominant vessel with 30% proximal and mid vessel narrowing Right Coronary Dominant vessel with 30% proximal distal narrowing with a widely patent mid vessel stent Left Ventriculography The left ventricle is normal in size with normal contractility. The left ventricular ejection fraction is estimated to be 60%. Left ventricular wall motion abnormalities are not present. There is no mitral insufficiency. Hemodynamics The aortic pressure is 107/52 mmHg with a mean of 76 mmHg. The left ventricular pressure is 106/5 mmHg with a mean of mmHg. The left ventricular end diastolic pressure is 18 mmHg. There was no gradient across the aortic valve upon pullback. PCI Technique Lesion Anticoagulation was achieved with Angiomax. Patient was preloaded with Angiomax IV 14 ml. Percutaneous coronary intervention was performed on the mid left anterior [place] [address] CARDIAC CATH REPORT Name: MAEVEMIGDALIAVALENTIN Room: [address]#: [id number] Admission: 03/21/20 Attend Phys: José Mota MD, Discharge: 03/22/20 Date of : 45 Report #: [id number] lesion stenosis prior to intervention was 80.75% with LACEY 3 flow. A 6F XB LAD 3.5 Guide Catheter was used to engage the lm ostium. A BMW 190cm Interventional Guidewire was used to cross the lesion. BALLOON DILATION A Balloon catheter NC Trek RX 2.25x12 was inserted and inflated up to 14.00atm for 12seconds. Additional Inflation: 20.00atm for 12seconds. Additional Inflation: 22.00atm for 9seconds. A Cutting Balloon catheter AngioSculpt PTCA 2.5 x 10mm was inserted and inflated up to 10 [place] for 15 seconds. Additional Inflations: 12 [place] for 15 seconds; 14 [place]ouston for 15 seconds. STENT DEPLOYMENT A drug-eluting stent Isaac RX Stent 2.98K66ta,2.5x8 was inserted and inflated up to 16.00atm for 10seconds. Additional Inflation: 18.00atm for 8seconds. A 2nd drug-eluting stent Roark RX Stent 2.5 x 8mm was inserted and inflated up to 12 [place] for 8 seconds. Addtional Inflation: 15 [place] for 9 seconds. A 3rd drug-eluting stent Isaac RX Stent 2.25 x 8mm was inserted and inflated up to 16 [place] for 11 seconds. Additional Inflation: 18 [place] for 10 seconds. Final angiography reveals 10,0 % stenosis with LACEY 3 flow. COMMENTS I performed angioplasty, atherotomy/atherectomy and stenting of the tandem mid LAD stenosis with 10 and 0% residual narrowings Conclusion 1. Significant coronary artery disease characterized by the following: A widely patent proximal LAD stent with tandem 80 and 75% mid LAD stenosis B 30% proximal and mid circumflex narrowing, this being a nondominant vessel C dominant right coronary artery with 30% proximal and distal narrowings with a widely patent mid right coronary stent 2. Normal left ventricular systolic function, estimated ejection fraction being 60% 3. Modest elevation of left ventricular end-diastolic pressure at [facility] [address] [place] [address] CARDIAC CATH REPORT Name: VALENTIN SANDERSON Room: [address] Dil[place] Moody#: [id number] Admission: 03/21/20 Attend Phys: José Mota MD, Discharge: 03/22/20 Date of : 45 Report #: [id number] rest 4. Successful angioplasty, atherotomy/atherectomy, and stenting of 80 and 75% mid LAD stenoses with 10 and 0% residual narrowings and LACEY-3 flow to the distal vessel Recommendations Cardiac Risk Reduction Program Aggressive Medical Therapy Medications Administered Aspirin (any) Prasugrel Diagnostic Cath Approved by: José Mota MD Date/Time: 03/22/2020 11:52:19 <ELECTRONICALLY SIGNED> By: José Mota MD, [facility] 03/22/20 1154 1154 [id number] Mota MD, [facility] /INF
--- NOTE | 2020-03-22 17:20 | EKG ---
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 : 1945 Requested By: José Mota Order Number: [id number] Reading MD: José Mota Measurements Intervals [place] Rate: 65 P: 56 [place]: 164 QRS: -29 QRSD: 72 T: 19 QT: 439 QTc: 457 Interpretive Statements Sinus rhythm Probable left atrial enlargement Borderline left axis deviation Abnormal R-wave progression, early transition Nonspecific T abnrm, anterolateral leads Compared to ECG 03/21/2020 11:37:[address]-t changes have decreased Electronically Signed On 03-22-2020 17:20:21 CDT by José Mota [email or web address] <ELECTRONICALLY SIGNED> By: José Mota MD, [facility] 03/22/20 1720 8 042 José Mota MD, [facility] /EPI
--- NOTE | 2020-03-22 17:31 | EKG ---
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 : 1945 Requested By: José Mota Order Number: [id number] Reading MD: José Mota Measurements Intervals [place] Rate: 55 P: 61 [place]: 166 QRS: -27 QRSD: 93 T: -42 QT: 469 QTc: 449 Interpretive Statements Sinus rhythm Probable left atrial enlargement Borderline left axis deviation Abnormal R-wave progression, early transition Abnrm T, consider ischemia, anterolateral lds Compared to ECG 03/21/2020 08:09:58 No significant changes Electronically Signed On 03-22-2020 17:31:26 CDT by José Mota [email or web address] <ELECTRONICALLY SIGNED> By: José Mota MD, [facility] 03/22/20 1731 1137 1137 José Mota MD, [facility] /EPI
--- NOTE | 2020-03-22 17:34 | EKG ---
[place] [address] ELECTROCARDIOGRAM REPORT Name: VALENTIN SANDERSON Room: [address] M.R.#: [id number] Admission: 03/21/20 Attend Phys: Maritza Milan Discharge: 03/22/20 Date of : 45 Date of Service: 03/21/20 0809 Report #: [id number] THIS REPORT FOR: //name// [facility] Test Date: 2020-03-21 Test Time: 08:09:58 Pat Name: VALENTIN SANDERSON Department: Room: 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 : 1945 Requested By: José Mota Order Number: [id number] Reading MD: José Mota Measurements Intervals [place] Rate: 54 P: 50 PA: 159 QRS: -26 QRSD: 102 T: -47 QT: 467 QTc: 443 Interpretive Statements Sinus rhythm Probable left atrial enlargement Borderline left axis deviation Abnrm T, consider ischemia, anterolateral lds Compared to ECG 12/03/2019 05:38:43 No significant changes Electronically Signed On 03-22-2020 17:33:53 CDT by José Mota [email or web address] <ELECTRONICALLY SIGNED> By: José Mota MD, [facility] 03/22/20 1733 0809 0809 José Mota MD, [facility] /EPI
--- NOTE | 2020-03-23 10:33 | D ---
[address] [address] DISCHARGE SUMMARY Name: VALENTIN SANDERSON Room: [address] Dilma Moody#: [id number] Admission: 03/21/20 Attend Phys: José Mota MD, Discharge: 03/22/20 Date of : 45 Report #: [id number] THIS REPORT FOR: //name// cc: Nicki García Maggie M. DO THIS REPORT FOR: //name// CC: José García DATE OF SERVICE: 03/22/2020 FINAL DISCHARGE DIAGNOSES: 1. Unstable angina. 2. Coronary artery disease. 3. Status post multiple percutaneous coronary interventions, most recently to the left anterior descending on 03/21/2020. 4. Hypothyroidism. 5. Hyperlipidemia. 6. Carotid stenosis. PROCEDURES: 03/21/2020 - Left heart catheterization, left ventriculography, selective coronary arteriography, and percutaneous coronary intervention to the LAD. 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 He has undergone multiple prior PCIs. Recently, he has noted recrudescence of chest pain radiating to the arms and axilla, compatible with recurrent angina following an unstable course. Given the known coronary artery disease and the recent clinical pattern, I recommend recatheterization, which was undertaken on 03/21/2020. That study revealed normal LV function with an ejection fraction of 60%. There was significant tandem LAD stenoses of 80 and 75% magnitude. I performed angioplasty, atherectomy, and stenting of the tandem LAD lesions deploying 2 drug-eluting stents in the mid LAD with 0% residual narrowing and LACEY 3 flow of the distal vessel. The patient did well postprocedurally without recurrent chest pain and troponin inconsequentially is 0.14. Additional lab was sodium 137, potassium 4.0, BUN 13, creatinine 1.1, glucose 105. Hemoglobin 17.2, white blood cell count 7900 with 224,000 platelets. There was good hemostasis at the right [place] [address] DISCHARGE SUMMARY Name: VALENTIN SANDERSON Toan Room: [address] Dilma Moody#: [id number] Admission: 03/21/20 Attend Phys: José Mota MD, Discharge: 03/22/20 Date of : 45 Report #: [id number] DISCHARGE MEDICATIONS: He was discharged to home on the following medications: Praluent 150 mg subcutaneously every 2 weeks, aspirin 325 mg daily, finasteride or Proscar 5 mg daily, L-thyroxine 50 mcg daily, pantoprazole 40 mg b.i.d., prasugrel 10 mg daily with additional 30 mg nick-procedural dose, simvastatin 20 mg daily, and Flomax 0.4 mg daily. I will plan to see the patient in followup in 3 weeks. Therefore, the patient is discharged to home in stable condition on the aforementioned medications with followup as described above. <ELECTRONICALLY SIGNED> By: José Mota MD, FACC 03/23/20 1033 [id number] Mota MD, FAC /nt
== END 2020-03-22 10:32 | disposition home or self-care (01) ==
LOC: M.CL 07:38 → EDSTATUS 10:27 → M.2W 11:19 → M.TBA-CV 11:19 → M.2W 13:26
PROVIDERS: ADMIT Internal Medicine; ATTEND Internal Medicine
DX: Z03.818 Encounter for observation for suspected exposure to other biological agents ruled out (principal); I25.110 Atherosclerotic heart disease of native coronary artery with unstable angina pectoris; E78.00 Pure hypercholesterolemia, unspecified; I10 Essential (primary) hypertension; E03.9 Hypothyroidism, unspecified

== ENCOUNTER → 2020-05-19 | Outpatient (CLI) | payer OTHER, MEDICARE | LOC: M.MRI 08:06 | PROVIDERS: ATTEND Family Medicine | DX: M19.012 Primary osteoarthritis, left shoulder (principal); M75.102 Unspecified rotator cuff tear or rupture of left shoulder, not specified as traumatic; M75.52 Bursitis of left shoulder; G89.29 Other chronic pain ==

== ENCOUNTER → 2020-11-10 | Outpatient (CLI) | payer OTHER, MEDICARE ==
[2020-11-10 12:21] LABS: ABSOLUTE BASOPHILS 0.1 thou/uL (0.0-0.2); ABSOLUTE EOSINOPHILS 0.1 thou/uL (0.0-0.7); ABSOLUTE LYMPHOCYTES 1.4 thou/uL (0.8-5.3); ABSOLUTE MONOCYTES 0.6 thou/uL (0.0-1.2); ABSOLUTE NEUTROPHILS 4.6 thou/uL (1.6-8.1); BASOPHILS 1.1 %; EOSINOPHILS 2.1 %; HEMATOCRIT 48.6 % (42.0-52.0); HEMOGLOBIN 16.5 gm/dL (14.0-18.0); LYMPHOCYTES 19.9 %; MCH 30.3 pg (26.0-34.0); MCV 89.1 fL (80.0-100.0); MONOCYTES 9.1 %; MPV 7.9 fl. (7.2-11.1); NUCLEATED RBCS 0 /100WBC; PLATELET COUNT* 224 thou/uL (150-400); POLYS 67.8 %; RBC 5.46 mil/uL (4.50-6.00); WBC 6.9 thou/uL (4.0-11.0)
[2020-11-10 12:33] LABS: ALBUMIN 3.8 g/dL (3.4-5.0); ALKALINE PHOSPHATASE 106 U/L (46-116); ANION GAP 9 mmol/L (7-16); BUN 17 mg/dL (7-18); CALCIUM 9.4 mg/dL (8.5-10.1); CHLORIDE 105 mmol/L (98-107); CHOLESTEROL 129 mg/dL (<200); CO2 27 mmol/L (21-32); GLUCOSE 106 mg/dL (70-99); HDL CHOLESTEROL 58 mg/dL (>40); LDL CHOLESTEROL 62 mg/dL (<100); POTASSIUM 4.1 mmol/L (3.5-5.1); SGOT 26 U/L (15-37); SGPT 42 U/L (30-65); SODIUM 141 mmol/L (136-145); TC:HDL 2.2 Ratio (Not establshd); TOTAL BILIRUBIN 0.5 mg/dL (<0.1-1.0); TOTAL PROTEIN 8.3 g/dL (6.4-8.2); TRIGLYCERIDE 47 mg/dL (<150); VLDL 9 mg/dL (<40)
[2020-11-10 12:35] LABS: SERUM ASSESSMENT Clear
[2020-11-10 21:06] LABS: TESTOSTERONE 520 ng/dL (264-916)
[2021-01-18 10:00] LABS: GLYCOHEMOGLOBIN (HGB A1C) 5.4
== END ==
LOC: M.LAB 11:52
PROVIDERS: ATTEND Family Medicine
DX: N40.1 Benign prostatic hyperplasia with lower urinary tract symptoms (principal); E03.9 Hypothyroidism, unspecified; E78.5 Hyperlipidemia, unspecified; R39.12 Poor urinary stream

== ENCOUNTER → 2021-06-16 | Outpatient (CLI) | payer OTHER, MEDICARE ==
[2021-06-16 10:48] LABS: ABSOLUTE BASOPHILS 0.1 thou/uL (0.0-0.2); ABSOLUTE EOSINOPHILS 0.2 thou/uL (0.0-0.7); ABSOLUTE LYMPHOCYTES 1.2 thou/uL (0.8-5.3); ABSOLUTE MONOCYTES 0.6 thou/uL (0.0-1.2); ABSOLUTE NEUTROPHILS 4.8 thou/uL (1.6-8.1); BASOPHILS 1.2 %; EOSINOPHILS 2.7 %; HEMOGLOBIN 16.2 gm/dL (14.0-18.0); LYMPHOCYTES 17.8 %; MCH 30.8 pg (26.0-34.0); MCHC 34.5 g/dL (28.0-37.0); MCV 89.4 fL (80.0-100.0); MONOCYTES 8.5 %; MPV 8.3 fl. (7.2-11.1); NUCLEATED RBCS 0 /100WBC; PLATELET COUNT* 198 thou/uL (150-400); POLYS 69.8 %; RBC 5.26 mil/uL (4.50-6.00); RDW-CV 13.4 % (10.5-14.5); WBC 6.8 thou/uL (4.0-11.0)
[2021-06-16 11:03] LABS: ALBUMIN 3.9 g/dL (3.4-5.0); ALKALINE PHOSPHATASE 99 U/L (46-116); ANION GAP 9 mmol/L (7-16); BUN 29 mg/dL (7-18); CALCIUM 9.3 mg/dL (8.5-10.1); CHLORIDE 105 mmol/L (98-107); CHOLESTEROL 129 mg/dL (<200); CO2 27 mmol/L (21-32); CREATININE 1.1 mg/dL (0.6-1.3); GLUCOSE 100 mg/dL (70-99); HDL CHOLESTEROL 56 mg/dL (>40); LDL CHOLESTEROL 58 mg/dL (<100); POTASSIUM 4.1 mmol/L (3.5-5.1); SGOT 18 U/L (15-37); SGPT 30 U/L (30-65); SODIUM 141 mmol/L (136-145); TC:HDL 2.3 Ratio (Not establshd); TOTAL BILIRUBIN 0.3 mg/dL (<0.1-1.0); TOTAL PROTEIN 8.1 g/dL (6.4-8.2); TRIGLYCERIDE 77 mg/dL (<150); VLDL 15 mg/dL (<40)
[2021-06-16 11:05] LABS: SERUM ASSESSMENT Clear
== END ==
LOC: M.LAB 10:28
PROVIDERS: ATTEND Family Medicine
DX: N40.1 Benign prostatic hyperplasia with lower urinary tract symptoms (principal); E78.5 Hyperlipidemia, unspecified; R94.39 Abnormal result of other cardiovascular function study; E66.09 Other obesity due to excess calories